=== PATIENT | male | born 1975 | race Caucasian/White ===

== ENCOUNTER 2018-02-09 20:42 | Emergency (ER) | payer MEDICAID ==
[2018-02-09] MEDS ORDERED: Cephalexin 250 MG Cap PO ONE (21:11)
[2018-02-09] MEDS ORDERED: Ketorolac 60 MG/2 ML SDV IM ONE (21:16)
[2018-02-09] MEDS ORDERED: Diphtheria,Pertussis(Acell),Tetanus Vaccine 0.5 ML SDV IM ONE (21:17)
[2018-02-09 21:36] VITALS: BP 143/98
--- NOTE | 2018-02-11 08:23 | ER ---
DATE SEEN: 02/09/2018 REASON FOR VISIT: Nail injury. 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 He complains of throbbing pain. He had bleeding initially that stopped. PAST MEDICAL HISTORY: His last tetanus was in 2010. ALLERGIES: He has no known allergies. REVIEW OF SYSTEMS: He denies any fever. PHYSICAL EXAMINATION: VITAL SIGNS: Blood pressure is 168/95, temperature 98.7. EXTREMITIES: Left foot, no obvious swelling. There is a puncture wound noted in the distal aspect of the plantar surface that is tender to palpation with no drainage. No foreign bodies visible. IMPRESSION: Dirty wound. PLAN: 1. Cephalexin 500 mg twice a day. 2. Warm soaks. 3. Tdap was updated. 4. Toradol 60 mg IM for pain. 5. May use ibuprofen and Tylenol at home as well. TIME SEEN: 2100 hours. /[id number] FELECIA/TERRIE
== END 2018-02-09 21:36 | disposition home or self-care (01) ==
LOC: FB.ED 20:42
DX: S91.332A Puncture wound without foreign body, left foot, initial encounter (principal); W45.0XXA Nail entering through skin, initial encounter; Y92.009 Unspecified place in unspecified non-institutional (private) residence as the place of occurrence of the external cause
CPT/HCPCS: 90472; 90715; 96372; 99283; A9270; J1885